=== PATIENT | female | born 1995 | race Caucasian/White ===

== ENCOUNTER → 2023-03-22 | Emergency (ER) | payer OTHER ==
[~2023-03-22] MED LIST: CIPROFLOXACIN 400mg IV 400 MG/200 ML BAG IV ONE; FAMOTIDINE 20 MG/2 ML VIAL IV ONE; NA CHLORIDE 0.9% 1,000 ML ONE; ONDANSETRON 4 MG/2 ML VIAL ONE; POTASSIUM 25 MEQ EFFERV TAB ONE
[2023-03-22 09:26] LABS: Absolute Lymphocytes (CBC) 0.9 K/uL (0.7-4.9); Hematocrit 41.3 % (36.0-45.0); Lymphocytes % 15.2 % (15.3-44.8); MCV 81.6 fL (80-100); MPV 8.7 fL (7.6-11.3); Platelets 191 thou/uL (152-406); RBC Red Blood Cell Count 5.06 M/uL (3.86-4.86)
[2023-03-22 09:28] LABS: Specific Gravity < 1.005 (1.005-1.030)
[2023-03-22 09:35] LABS: Albumin 3.5 g/dL (3.4-5.0); Bilirubin Total 0.5 mg/dL (0.2-1.0); Potassium 3.2 mEq/L (3.5-5.1); Protein, Total 7.3 g/dL (6.4-8.2)
[2023-03-22 09:45] LABS: Specific Gravity < 1.005 (1.005-1.030); Urine Bacteria None Seen /HPF (<20); Urine Bilirubin NEGATIVE (Negative); Urine Blood Negative (Negative); Urine Clarity Clear (Clear); Urine Color Colorless (Yellow); Urine Crystals Unidentified Few /HPF (None Seen); Urine Glucose NEGATIVE (Negative); Urine Protein NEGATIVE (Negative); Urine RBC <5 /HPF (None Seen); Urine Urobilinogen Normal (Normal); Urine pH 5.5 (5.0-7.0)
--- NOTE | 2023-03-22 10:47 | ER ---
Nurse's Notes [facility] Name: Fiordaliza Regalado Age: 27 yrs Sex: Female : 1995 Arrival Date: 03/22/2023 Time: 08:53 Bed 4 Private MD: Diagnosis: Diarrhea, unspecified;Nausea with vomiting, unspecified;Hypokalemia;Fever, unspecified Presentation: 03/22 09:09 Chief complaint: Patient states: she has been having abdominal pain, fever, vomiting ap3 and diarrhea with meals since Friday03/18/2023. patient currently rates her pain as a 2/10 on the pain scale. Coronavirus screen: At this time, the client does not indicate any symptoms associated with coronavirus-19. Ebola Screen: No symptoms or risks identified at this time. Initial Sepsis Screen: Does the patient meet any 2 criteria? HR > 90 bpm. Does the patient have a suspected source of infection? Yes: Acute abdominal pain. Risk Assessment: Do you want to hurt yourself or someone else? Patient reports no desire to harm self or others. Onset of symptoms was March 18, 2023. 09:09 Method Of Arrival: Ambulatory ap3 09:09 Acuity: BERNA 3 ap3 Triage Assessment: 09:11 General: Appears in no apparent distress. Behavior is calm, cooperative, appropriate ap3 for age. Pain: Complains of pain in abdomen. Neuro: Level of Consciousness is awake, alert, obeys commands, Oriented to person, place, time, situation, Appropriate for age. Cardiovascular: Patient's skin is warm and dry. Respiratory: Airway is patent Respiratory effort is even, unlabored, Respiratory pattern is regular, symmetrical. GI: Reports diarrhea, nausea, vomiting. 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 - Social history:: Smoking status: Patient denies any tobacco usage or history of. Screenin:12 [facility] ED Fall Risk Assessment (Adult) History of falling in the last 3 months, ap3 including since admission No falls in past 3 months (0 pts). Abuse screen: Denies threats or abuse. Nutritional screening: No deficits noted. Tuberculosis screening: No symptoms or risk factors identified. Assessment: 09:30 General: Appears in no apparent distress. Behavior is calm, cooperative. Pain: Pain hb currently is 2 out of 10 on a pain scale. Neuro: Level of Consciousness is awake, alert, obeys commands, Oriented to person, place, time, situation. Cardiovascular: Patient's skin is warm and dry. Respiratory: Respiratory effort is even, unlabored, Respiratory pattern is regular, symmetrical. GI: Reports lower abdominal pain, upper abdominal pain, diarrhea, nausea, vomiting. : No signs and/or symptoms were reported regarding the genitourinary system. EENT: No signs and/or symptoms were reported regarding the EENT system. Derm: Skin is pink, warm \T\ dry. Musculoskeletal: No signs and/or symptoms reported regarding the musculoskeletal system. 10:30 Reassessment: Patient appears in no apparent distress at this time. Patient and/or jl7 family updated on plan of care and expected duration. Pain level reassessed. Patient is alert, oriented x 3, equal unlabored respirations, skin warm/dry/pink. Patient states feeling better. Patient states symptoms have improved. 11:04 Reassessment: Pt will be discharged once medications are done infusing. jl7 12:24 Reassessment: Patient appears in no apparent distress at this time. Patient and/or hb family updated on plan of care and expected duration. Pain level reassessed. Patient is alert, oriented x 3, equal unlabored respirations, skin warm/dry/pink. Vital Signs: 09:09 BP 125 / 87; Pulse 123; Resp 17; Temp 98.8; Pulse Ox 98% ; Weight 58.06 kg; Height 5 ap3 ft. 6 in. ; Pain 2/10; 09:30 BP 112 / 79; Pulse 92; Resp 15; Pulse Ox 99% on R/A; hb 12:00 BP 126 / 76; Pulse 86; Resp 15; Pulse Ox 99% on R/A; hb 09:09 Body Mass Index 20.66 (58.06 kg, 167.64 cm) ap3 09:09 Pain Scale: Adult ap3 ED Course: 08:57 Patient arrived in ED. ts1 08:58 Lele Arriaga MD is Attending Physician. evonne 09:10 Triage completed. ap3 09:12 Arm band placed on right wrist. ap3 09:12 Patient has correct armband on for positive identification. Bed in low position. Call ap3 light in reach. Adult w/ patient. Pulse ox on. NIBP on. 09:12 CBC with Diff Sent. ap3 09:12 CMP Sent. ap3 09:12 Lipase Sent. ap3 09:16 Inserted saline lock: 22 gauge in left antecubital area, using aseptic technique. Blood ds4 collected. 09:30 Provided Education on: tests, result times. hb 09:30 No provider procedures requiring assistance completed. hb 10:45 Silvana Garay MD is Referral Physician. evonne 11:03 Robin Emerson RN is Primary Nurse. jl7 12:25 IV discontinued, intact, bleeding controlled, No redness/swelling at site. hb Administered Medications: 09:29 Drug: NS 0.9% IV 1000 ml IV at 1 bolus Per protocol; 1000 mL bolus Route: IV; Rate: 1 ap3 bolus; Site: left antecubital; 10:36 Follow up: Response: No adverse reaction; IV Status: Completed infusion; IV Intake: hb 1000ml 09:29 Drug: Famotidine IVP 20 mg IVP once; dilute with 10 mL 0.9% NaCl; give over 2 minutes ap3 Route: IVP; Site: left antecubital; 10:36 Follow up: Response: No adverse reaction hb 09:29 Drug: Ondansetron IVP 4 mg IVP once; over 2 minutes Route: IVP; Site: left antecubital; ap3 10:36 Follow up: Response: No adverse reaction hb 11:04 Drug: NS 0.9% IV 1000 ml IV at 1 bolus Per protocol; 1000 mL bolus Route: IV; Rate: 1 jl7 bolus; Site: left antecubital; 11:04 Drug: Ciprofloxacin IVPB 400 mg 200 ml IVPB once over 60 mins Volume: 200 ml; Route: jl7 IVPB; Infused Over: 60 mins; Site: left antecubital; 11:04 Drug: Potassium PO Effervescent Tablet 50 mEq PO once; dissolve in 4 ounces of water or jl7 juice Route: PO; Medication: 09:30 VIS not applicable for this client. hb Intake: 10:36 IV: 1000ml; Total: 1000ml. hb Outcome: 10:46 Discharge ordered by . evonne 12:25 Discharged to home ambulatory, with family, hb 12:25 Condition: stable 12:25 Discharge instructions given to patient, Instructed on discharge instructions, follow up and referral plans. medication usage, Demonstrated understanding of instructions, follow-up care, medications, Prescriptions given X 3, 12:32 Patient left the ED. hb Signatures: Lele Arriaga MD MD cha Swanson, Donovan ds4 Rosalind Hfuf RN RN Robin Emerson RN RN jl7 Francie Ross RN RN ap3 Jaz Ferraro, PAS PAS ts1
--- NOTE | 2023-03-22 10:47 | EDPHYS ---
Physician Documentation [facility] Name: Fiordaliza Regalado Age: 27 yrs Sex: Female : 1995 Arrival Date: 03/22/2023 Time: 08:53 Bed 4 Private MD: ED Physician Lele Arriaga HPI: 03/22 10:40 This 27 yrs old Female presents to ER via Ambulatory with complaints of evonne Abdominal Pain, Fever, Nausea/Vomiting/Diarrhea. 10:40 The patient reports fever, not measured (subjective). Onset: The symptoms/episode evonne began/occurred 3 day(s) ago. Modifying factors: there are no obvious modifying factors. Associated signs and symptoms: Pertinent positives: diarrhea. Severity of symptoms: At their worst the symptoms were mild moderate in the emergency department the symptoms have improved mildly. The patient has not experienced similar symptoms in the past. 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 - Social history:: Smoking status: Patient denies any tobacco usage or history of. ROS: 10:41 Constitutional: Negative for fever, chills, and weight loss, Eyes: Negative for injury, evonne pain, redness, and discharge, ENT: Negative for injury, pain, and discharge, Neck: Negative for injury, pain, and swelling, Cardiovascular: Negative for chest pain, palpitations, and edema, Respiratory: Negative for shortness of breath, cough, wheezing, and pleuritic chest pain, Back: Negative for injury and pain, : Negative for injury, bleeding, discharge, and swelling, MS/Extremity: Negative for injury and deformity, Skin: Negative for injury, rash, and discoloration, Neuro: Negative for headache, weakness, numbness, tingling, and seizure, Psych: Negative for depression, anxiety, suicide ideation, homicidal ideation, and hallucinations, Allergy/Immunology: Negative for hives, rash, and allergies, Endocrine: Negative for neck swelling, polydipsia, polyuria, polyphagia, and marked weight changes, Hematologic/Lymphatic: Negative for swollen nodes, abnormal bleeding, and unusual bruising, 10:41 Abdomen/GI: Positive for abdominal pain, nausea and vomiting, diarrhea, Exam: 10:41 Constitutional: This is a well developed, well nourished patient who is awake, alert, evonne and in no acute distress. Head/Face: Normocephalic, atraumatic. Eyes: Pupils equal round and reactive to light, extra-ocular motions intact. Lids and lashes normal. Conjunctiva and sclera are non-icteric and not injected. Cornea within normal limits. Periorbital areas with no swelling, redness, or edema. ENT: Nares patent. No nasal discharge, no septal abnormalities noted. Tympanic membranes are normal and external auditory canals are clear. Oropharynx with no redness, swelling, or masses, exudates, or evidence of obstruction, uvula midline. Mucous membranes moist. Neck: Trachea midline, no thyromegaly or masses palpated, and no cervical lymphadenopathy. Supple, full range of motion without nuchal rigidity, or vertebral point tenderness. No Meningismus. Chest/axilla: Normal chest wall appearance and motion. Nontender with no deformity. No lesions are appreciated. Cardiovascular: Regular rate and rhythm with a normal S1 and S2. No gallops, murmurs, or rubs. Normal PMI, no JVD. No pulse deficits. Respiratory: Lungs have equal breath sounds bilaterally, clear to auscultation and percussion. No rales, rhonchi or wheezes noted. No increased work of breathing, no retractions or nasal flaring. Abdomen/GI: Soft, non-tender, with normal bowel sounds. No distension or tympany. No guarding or rebound. No evidence of tenderness throughout. Back: No spinal tenderness. No costovertebral tenderness. Full range of motion. Skin: Warm, dry with normal turgor. Normal color with no rashes, no lesions, and no evidence of cellulitis. MS/ Extremity: Pulses equal, no cyanosis. Neurovascular intact. Full, normal range of motion. Neuro: Awake and alert, GCS 15, oriented to person, place, time, and situation. Cranial nerves II-XII grossly intact. Motor strength 5/5 in all extremities. Sensory grossly intact. Cerebellar exam normal. Normal gait. Psych: Awake, alert, with orientation to person, place and time. Behavior, mood, and affect are within normal limits. Vital Signs: 09:09 BP 125 / 87; Pulse 123; Resp 17; Temp 98.8; Pulse Ox 98% ; Weight 58.06 kg; Height 5 ap3 ft. 6 in. ; Pain 2/10; 09:30 BP 112 / 79; Pulse 92; Resp 15; Pulse Ox 99% on R/A; hb 12:00 BP 126 / 76; Pulse 86; Resp 15; Pulse Ox 99% on R/A; hb 09:09 Body Mass Index 20.66 (58.06 kg, 167.64 cm) ap3 09:09 Pain Scale: Adult ap3 MDM: 09:00 Patient medically screened. [facility] 10:43 Differential diagnosis: viral Infection, bacterial infection, gastroenteritis, bowel evonne obstruction. Data reviewed: vital signs, nurses notes, lab test result(s). Consideration of Admission/Observation Escalation of care including admission/observation considered. I considered the following discharge prescriptions or medication management in the emergency department Medications were administered in the Emergency Department. See MAR. Independent interpretation of the following test(s) in the Emergency Department. Test considered but Not performed: CT: no ct abd/pelvic. Care significantly affected by the following chronic conditions: none. Counseling: I had a detailed discussion with the patient and/or guardian regarding the historical points, exam findings, and any diagnostic results supporting the discharge/admit diagnosis, lab results, the need for outpatient follow up, for definitive care, a family practitioner. 03/22 09:00 Order name: CBC with Diff; Complete Time: 10:23 [facility] 03/22 09:00 Order name: CMP; Complete Time: 10: [facility] 03/22 09:00 Order name: Lipase; Complete Time: 10: [facility] 03/22 09:00 Order name: Test, Urine; Complete Time: 10:23 [facility] 03/22 09:00 Order name: Urinalysis w/ reflexes; Complete Time: 10:23 [facility] 03/22 10:39 Order name: Stool Culture [facility] 03/22 10:39 Order name: Fecal Leukocyte Stain [facility] 03/22 09:00 Order name: IV Saline Lock; Complete Time: 09:12 [facility] 03/22 09:00 Order name: Labs collected and sent; Complete Time: 09:16 [facility] 03/22 10:39 Order name: PO challenge; Complete Time: 11:04 [facility] Administered Medications: 09:29 Drug: NS 0.9% IV 1000 ml IV at 1 bolus Per protocol; 1000 mL bolus Route: IV; Rate: 1 ap3 bolus; Site: left antecubital; 10:36 Follow up: Response: No adverse reaction; IV Status: Completed infusion; IV Intake: hb 1000ml 09:29 Drug: Famotidine IVP 20 mg IVP once; dilute with 10 mL 0.9% NaCl; give over 2 minutes ap3 Route: IVP; Site: left antecubital; 10:36 Follow up: Response: No adverse reaction hb 09:29 Drug: Ondansetron IVP 4 mg IVP once; over 2 minutes Route: IVP; Site: left antecubital; ap3 10:36 Follow up: Response: No adverse reaction hb 11:04 Drug: NS 0.9% IV 1000 ml IV at 1 bolus Per protocol; 1000 mL bolus Route: IV; Rate: 1 jl7 bolus; Site: left antecubital; 11:04 Drug: Ciprofloxacin IVPB 400 mg 200 ml IVPB once over 60 mins Volume: 200 ml; Route: jl7 IVPB; Infused Over: 60 mins; Site: left antecubital; 11:04 Drug: Potassium PO Effervescent Tablet 50 mEq PO once; dissolve in 4 ounces of water or jl7 juice Route: PO; Disposition Summary: 03/22/23 10:46 Discharge Ordered Notes: Location: Home evonne Problem: new evonne Symptoms: have improved evonne Condition: Stable evonne Diagnosis - Diarrhea, unspecified evonne - Nausea with vomiting, unspecified evonne - Hypokalemia evonne - Fever, unspecified evonne Followup: evonne - With: Private Physician - When: 2 - 3 days - Reason: Recheck today's complaints, Continuance of care, Re-evaluation by your physician Followup: evonne - With: Silvana Garay MD - When: 2 - 3 days - Reason: Recheck today's complaints, Re-evaluation by your physician Discharge Instructions: - Discharge Summary Sheet evonne - Food Choices to Help Relieve Diarrhea, Adult evonne - Diarrhea, Adult evonne - Potassium Content of Foods evonne - Fever, Adult evonne - Nausea and Vomiting, Adult evonne - Hypokalemia evonne Forms: - Medication Reconciliation Form [facility] - Thank You Letter evonne - Antibiotic Education evonne - Prescription Opioid Use evonne - Patient Portal Instructions [facility] - Leadership Thank You Letter [facility] Prescriptions: - ondansetron 4 mg Oral Tablet,disintegrating - take 1 tablet ORAL route every 6 hours as needed for nausea and vomiting; 24 evonne tablet; Refills: 0, Product Selection Permitted - Cipro 250 mg Oral tablet - take 1 tablet ORAL route every 12 hours; 10 tablet; Refills: 0, Product evonne Selection Permitted - dicyclomine 10 mg/5 mL Oral solution - take 7.5 milliliter ORAL route 4 times per day; 160 milliliter; Refills: 0, evonne Product Selection Permitted Signatures: Dispatcher [employer] Lele Quintero MD MD cha Leal, Jahala RN RN jl7 Francie Ross RN RN ap3 Rosalind Huff RN
[2023-03-22 12:53] VITALS: TEMP 98.8
[2023-03-22 13:00] VITALS: BP 126/76; O2SAT 99
== END ==
LOC: ER 08:53
DX: E87.6 Hypokalemia (principal); R19.7 Diarrhea, unspecified; R50.9 Fever, unspecified
CPT/HCPCS: 96361; 85025; 81001; 36415; 81025; 83690; 80053; 96375; 96374; 99284; J2405; J0744; J7030 ×2

== ENCOUNTER → 2023-06-24 | Emergency (ER) | payer OTHER ==
[~2023-06-24] MED LIST changes: -CIPROFLOXACIN 400mg IV 400 MG/200 ML BAG IV ONE; -FAMOTIDINE 20 MG/2 ML VIAL IV ONE; +IBUPROFEN 200 MG TAB PO ONE; +METOPROLOL TARTRATE 5 MG/5 ML INJ IV ONE; +NA CHLORIDE 0.9% 2,000 ML ONE; -ONDANSETRON 4 MG/2 ML VIAL ONE; -POTASSIUM 25 MEQ EFFERV TAB ONE; +PROPRANOLOL HCL 40 MG TAB ONE
--- OUTSIDE RECORDS SUMMARY | 2023-06-24 14:31 | XMS REPORT | Continuity of Care Document ---
Author Name Unknown Address [address] [facility] [address] [place] [address] [facility] Address [address] [facility] [address] [place] [address] Care Team Providers Care Piano Refinisher Name Role Phone Heide Carrillo Attending Clinician Unavailable Heide Carrillo Admitting Clinician Unavailable Payers Payer Name Policy Type Policy Number Effective Date Expirati on Date Source Allergies, Adverse Reactions, Alerts Allergy Name Allergy Type Status Severity Reaction(s) Onset Date Inactive Date Treating Clinician Comments Source No Known Allergie s DA Active U 08-16 00:00: 00 [facility] No Known Allergie s DA Active U 08-16 00:00: 00 [facility] Procedures Procedure Date / Time Performed Performing Clinicia n Source [id number] 2020-08-17 00:00:00 [facility] [id number] 2020-08-17 00:00:00 [facility] [id number] 2020-08-17 00:00:00 [facility] [id number] 2020-08-17 00:00:00 [facility] [id number] 2020-08-17 00:00:00 [facility] [id number] 2020-08-17 00:00:00 [facility] [id number] 2020-08-16 [facility] Encounters Start Date/Time End Date/Time Encounter Type Admission Type Attending [facility] Care Facility Care Department Encounter ID Source 2020-08-16 15:22:00 2020-08-19 14:26:00 Inpatient Heide Srinivasan [facility] [id number] [facility] Results Test Description Test Time Test Comments Results Result Co mments Source HGB [id number] 12:10:00* Test Item Value Reference Range Interpretation Comme nts HEMOGLOBIN (test code = HGB) 9.8 g/dL 10.1-13.8 L HEMATOCRIT (test code = HCT) 31.6 % 32.5-41.8 L HGB [id number] 08:37:00* Test Item Value Reference Range Interpretation Comme nts HEMOGLOBIN (test code = HGB) 9.9 g/dL 10.1-13.8 L HEMATOCRIT (test code = HCT) 31.5 % 32.5-41.8 L AG HEPATITIS B [id number] 17:36:00* Test Item Value Reference Range Interpretation Comme nts AG HEPATITIS B SURFACE (test code = HBSAG) NONREACTIVE NONREACTIVE IS CONSENT FORM SIGNED FOR HIV TESTING? NAB HEPATITIS C [id number] 17:36:00* Test Item Value Reference Range Interpretation Comme nts AB HEPATITIS C (test code = HCVAB) NONREACTIVE NONREACTIVE SIGNAL TO CUTOFF (test code = CUTOFF) 0.09 <0.80 N IS CONSENT FORM SIGNED FOR HIV TESTING? NAB [id number] 17:36:00* Test Item Value Reference Range Interpretation Comme nts AB TREPONEMA (test code = TREPAB) NONREACTIVE NONREACTIVE IS CONSENT FORM SIGNED FOR HIV TESTING? NAB HIV 1 17:36:00* Test Item Value Reference Range Interpretation Comme nts AB HIV 1 2 (test code = AUU59BW) NONREACTIVE NONREACTIVE Done by [employer]aur 4th Gen HIV Ag/Ab Combo Screen IS CONSENT FORM SIGNED FOR HIV TESTING? NCBC W/AUTO [id number] 16:37:00* Test Item Value Reference Range Interpretation Comme nts WHITE BLOOD CELL (test code = WBC) 11.5 K/mm3 6.5-12.3 N RED BLOOD CELL (test code = RBC) 4.77 M/mm3 3.51-4.69 H HEMOGLOBIN (test code = HGB) 12.1 g/dL 10.1-13.8 N HEMATOCRIT (test code = HCT) 37.6 % 32.5-41.8 N MEAN CELL VOLUME (test code = MCV) 78.8 fL 84.6-96.6 L MEAN CELL HGB (test code = MCH) 25.4 pg 27.3-33.9 L MEAN CELL HGB CONCETRATION ( test code = MCHC) 32.2 gm/dL 32.0-34.2 N RED CELL DISTRIBUTION WIDTH (test code = RDW) 13.8 % 12.2-16.3 N PLATELET COUNT (test code = PLT) 213 K/mm3 134-363 N MEAN PLATELET VOLUME (test c ode = MPV) 12.6 fL 9.2-12.7 N NEUTROPHIL % (test code = NT%) 72.9 % 57.9-77.3 N LYMPHOCYTE % (test code = LY%) 17.9 % 14.5-29.7 N MONOCYTE % (test code = MO%) 7.4 % 3.6-10.2 N EOSINOPHIL % (test code = EO%) 1.0 % 0.0-3.0 N BASOPHIL % (test code = BA%) 0.3 % 0.1-0.9 N NEUTROPHIL # (test code = NT#) 8.4 K/mm3 LYMPHOCYTE # (test code = LY#) 2.1 K/mm3 MONOCYTE # (test code = MO#) 0.9 K/mm3 EOSINOPHIL # (test code = EO#) 0.11 K/mm3 BASOPHIL # (test code = BA#) 0.0 K/mm3 RBC MORPHOLOGY REQUIRED (ezekiel t code = RBCM) NORMAL NORMAL PLATELET MORPHOLOGY REQUIRED (test code = PLTMR) NORMAL NORMAL COVID 19 Asymptomatic IH [id number] 20:05:00* Test Item Value Reference Range Interpretation Comme nts COVID 19 Asymptomatic IH AG (test code = COVNONPUIAG) NEGATIVE NEGATIVE This test has be en authorized only for the detection ofproteins from SARS-CoV-2, not for any other viruses orpathogens. Negative results should be treated as presumptive andconfirmed with a molecular assay, if necessary for patientmanagement. Negative results do not rule out COVID-19 andshould not be used as the sole basis for treatment orpatient management decisions, including infection controldecisions. Negative results should be considered in thecontext of a patient's recent exposures, history and thepresence of clinical signs and symptoms consistent withCOVID-19. This test has not been FDA cleared or approved; the test hasbeen authorized by FDA under an Emergency Use Authorization(EUA) for use by laboratories certified under the CLIA thatmeet the requirements to perform moderate, high or waivedcomplexity tests. This test is authorized for use at thePoint of Care (POC), i.e., in patient care settingsoperating under a CLIA Certificate of Waiver, Certificate ofCompliance, or Certificate of Accreditation. This test is only authorized for the duration of thedeclaration that circumstances exist justifying theauthorization of emergency use of in vitro diagnostic testsfor detection and/or diagnosis of COVID-19 under Jmfxjtc450(b)(1) of the Act, 21 U.S.C. 360bbb-3(b)(1), unless theauthorization is terminated or revoked sooner. Notes Date/Time Note Provider Source 2020-08-19 10:01:00 [id number] s5nQ7ZNXye4HwWygUmUZCdyM20aIn qHzASSpTLr/RJ8zaKru9tl2BNJIFoDNBeL1898-71-01G36:0 1:00 [facility])OB Postpart Progr NoteREPORT#:[id number] REPORT STATUS: SignedDATE:08/19/20 TIME: 100 PATIENT: SUKUMAR VOGT UNIT #: [id number]#: [id number] ROOM/BED: [facility]-ADOB: [birth year] AGE: 24 SEX: F ATTEND: Heide Carrillo [facility] AUTHOR: Vince Castillo MD * ALL edits or amendments must be made on the electronic/computer document * Subjective SubjectiveAdmission EGA: Weeks: 41 Days: 0EGA at delivery (wks/days): 41 1/7 weeksStatus/Day: post (day 2)Comments:doing well, feeling much better. pain well controlled. tolerating po. ambulating voiding. Objective Nursing Documentation ReviewNursing Data:The data set between the solid lines has been imported from nursing documentation. Any exceptions have been noted below under Provider comments. Feeding preference: Post hemorrhage risk score: Low Risk for Hemorrhage. Provider comments on imported nursing data: [] GeneralVS:Vital Signs: Date Time Temp Pulse Resp B/P B/P Pulse O2 O2 Flow FiO2 Mean Ox Delivery Rate 08/18 2320 97.8 85 18 100/64 08/18 2009 98.0 84 20 111/73 96 08/18 1645 97.8 72 18 120/69 98 08/18 1330 98.0 65 18 107/65 97 08/18 1025 98.2 82 18 125/81 PATIENT WEIGHT: Weight (lb): 165Weight (oz): Weight (kg): 74.843 Physical ExamNeuro: Exam: alert, oriented x3, normal speechAbdomen: soft, no abnormal tenderness, no guarding, no rebound tendernessFundus: firm, below the umbilicus, non-tenderLochia: normalLacerations: Perineal laceration(s): 1st Degree w/vagina, 2nd Degree, 2nd Degree w/vag musclesLower extremities: Edema: none Diagnosis, Assessment Plan Diagnosis, Assessment PlanProblem List/A P: 1. (spontaneous vaginal delivery) Assessment: nml progressPlan: routine care, discharge today, discharge after H/H at [address] [place] [address] #:[id number] OF REPORT PRProgress Fjzi1909-45-64K47:01:00F.QRUQ43785230-0722JINhxaa able for patient jlykVFJHHWGHVHCBPL7810-66-92C65:03:18 [facility] 2020-08-18 07:01:00 PMlhiqukiyj44652691t [facility]/LrrgS7C2GC63l/Dc1OzVEvFN t+79fmYMLd0n5TaP28CijoBzBpJ2HSA3PQ7569-67-84P63:0 1:00 [facility] ([facility])OB Postpart Progr NoteREPORT#:[id number] REPORT STATUS: SignedDATE:08/18/20 TIME: 700 PATIENT: SUKUMAR VOGT UNIT #: [id number]#: [id number] [address] AGE: 24 SEX: F ATTEND: Heide Carrillo MDADM AUTHOR: Heide Carrillo MD * ALL edits or amendments must be made on the electronic/computer document * Subjective SubjectiveComments:No complaints except pressure/soreness at bottom. Good pain control with motrin and tylenol. Receiving support. ?s answered about nipples/ugalde Objective Nursing Documentation ReviewNursing data:The data set between the solid lines has been imported from nursing documentation. Any exceptions have been noted below under Provider comments. Feeding preference: Post hemorrhage risk score: Low Risk for Hemorrhage. Provider comments on imported nursing data: [] GeneralVS:Vital SignsDate Temp Pulse Resp B/P B/P Mean Pulse Ox FbH081/-08/18 97.7-100.3 65-122 16-20 101-144/59-9 75.0-109.0 81-100 2 Last Documented: Result Date Time B/P 121/81 08/18 0000 Temp 97.7 08/18 0000 Pulse 65 08/18 0000 Resp 18 08/18 0000 B/P Mean 92.0 08/17 1925 Pulse Ox 94 08/17 1625 PATIENT WEIGHT: Weight (lb): 165Weight (oz): Weight (kg): 74.843 Physical ExamFundus: firm, below the umbilicus, non-tenderLower extremities: Edema: trace ResultFindings/data:Laboratory Tests 08/16 1600 Hematology WBC (6.5 - 12.3 K/mm3) 11.5 RBC (3.51 - 4.69 M/mm3) 4.77 H Hgb (10.1 - 13.8 g/dL) 12.1 Hct (32.5 - 41.8 %) 37.6 MCV (84.6 - 96.6 fL) 78.8 L MCH (27.3 - 33.9 pg) 25.4 L MCHC (32.0 - 34.2 gm/dL) 32.2 RDW (12.2 - 16.3 %) 13.8 Plt Count (134 - 363 K/mm3) 213 MPV (9.2 - 12.7 fL) 12.6 Neut % (Auto) (57.9 - 77.3 %) 72.9 Lymph % (Auto) (14.5 - 29.7 %) 17.9 [place] % (Auto) (3.6 - 10.2 %) 7.4 Eos % (Auto) (0.0 - 3.0 %) 1.0 Baso % (Auto) (0.1 - 0.9 %) 0.3 Neut # (Auto) (K/mm3) 8.4 Lymph # (Auto) (K/mm3) 2.1 [place] # (Auto) (K/mm3) 0.9 Eos # (Auto) (K/mm3) 0.11 Baso # (Auto) (K/mm3) 0.0 Laboratory Tests 08/16 1600 Serology Treponema pallidum Ab (NONREACTIVE) NONREACTIVE Hep Bs Antigen (NONREACTIVE) NONREACTIVE Hepatitis C Antibody (NONREACTIVE) NONREACTIVE Hep C Ab Signal/Cutoff (<0.80) 0.09 HIV 1 2 Antibody (NONREACTIVE) NONREACTIVE Diagnosis, Assessment Plan Diagnosis, Assessment PlanFree text A P:PPD 1 /Mild Uterine Atony with EBL 700FU AM H/HDonut pillowLactation supportLikely home FridayRx motrin sentPelvic restFU 6 weeks at 0703 RPT #:[id number] OF REPORT PRProgress Znzq8773-30-93R14:01:00F.JRJW95219976-9517KJPsybo able for patient opvnSPSIBFWSBGBDWB7551-45-95R47:03:46 [facility] 2020-08-17 16:26:00 GIuphpudkti29989202s CpzQvpnJSlOuq5kpc3jj18ILS4ViS wXU3m7pIlrREaStLts81TqhHVDIlpg4Hvz0644-01-45D09:2 6:00 [facility] ([facility])OB Delivery NoteREPORT#:[id number] REPORT STATUS: SignedDATE:08/17/20 TIME: 1625 PATIENT: SUKUMAR VOGT UNIT #: [id number]#: [id number] [facility] A[facility]: 24 SEX: F ATTEND: Heide Carrillo [facility] AUTHOR: Heide Carrillo MD * ALL edits or amendments must be made on the electronic/computer document * OB Delivery Pre-deliveryGBS status: GBS status: negativeNewborn evaluation at delivery: NRP certified personnelAdmission EGA: Weeks: 41 Days: 0EGA at delivery (wks/days): 41 1/7 weeks Baby A InformationBaby A information Delivery date: 08/17/20 Delivery time: 1553 status: live born Wt of baby: not yet available Gender: female (Jayda) 1 minute: 8 5 minutes: 9 Presentation: vertexABG details Baby A Cord blood gases: not collectedNuchal cord Baby A Nuchal cord: yes (tight,deliv.through)Additional comments:60 seconds of delayed cord clamping. Aldo DE LA CRUZ, cut the cord.Baby vigorous and placed on maternal chestMDACC cord blood collection performed.Repair performed while waiting on nootrgbe4gg degree right inner vaginal at hymen, oozing, repaired with 2-0 mchimb9tj degree 1.5 cm at perineal body resxgnvr0yh degree left inner labia majora repaired with 2-0 vicrylPlacenta delivered spontaneously and patient felt hot. RN reports Temp 100.4 1 hour before delivery but normal pulse.Uterine atony after delivery of placentaUterine massage and I/O cath of 500 mL clear cnacb733 mcg rectal cytotec placed and 1 dose of IM methergine 0.2 mg llorv6tp round of uterine massage removed a thin strip, 3 cm long of placental membrane fragments. Uterus feels clearBleeding slowed Vaginal DeliveryVaginal delivery: Labor: induced Medications/Devices used: oxytocin, cytotec Vaginal delivery: spontaneous Amniotic fluid: clear Anesthesia type: epidural anesthesia Episiotomy: none Episiotomy repair: no Laceration repair: yes, 2-0 suture Placenta: spontaneous, intact, sent to pathology Post delivery meds used: oxytocin, methergine, cytotec Count: correct Vaginal packing: No Mother's condition: mother stable 's condition: stable in roomLacerations: Perineal laceration(s): 1st Degree w/vagina, 2nd Degree, 2nd Degree w/vag muscles Blood Loss/DetailsBlood loss at delivery: <1000 mlEBL at delivery (ml's): 700 at 1634 RUST #:[id number] OF REPORT OBObstetric oeso7386-80-62B47:26:00F.NFUN37270794-4360FHRegpm able for patient bddbHWQMLSXZNVCOIS9411-36-20D74:35:02 [facility] 2020-08-17 09:52:00 RObvtkcrvlf35089347a KhGP2WZ/xHIKc/3bByYHeka8L335K RX4Kw4Z2QQ+sraQB/gvO16QCkcF9gvfgg21934-69-22U50:5 2:00 [facility] ([facility])OB Intrapart Prog NoteREPORT#:[id number] REPORT STATUS: SignedDATE:08/17/20 TIME: 951 PATIENT: SUKUMAR VOGT UNIT #: [id number]#: [id number] [facility] [birth year] AGE: 24 SEX: F ATTEND: Heide Carrillo [facility] AUTHOR: Heide Carrillo MD * ALL edits or amendments must be made on the electronic/computer document * Subjective SubjectiveComments:Patient seen at 7:30 AM. No complaints. s/p cytotec at 5pm and again at midnight. Had ctxs and received epidural overnight.When pitocin started at 1, prolonged decel for 9 minutes. Pitocin stopped and patient continued to contract.Comfortable with epidural Objective GeneralVS:Last Documented: Result Date Time Pulse Ox 96 08/17 0855 Pulse 89 08/17 0855 B/P Mean 95.0 08/17 0845 B/P 121/78 08/17 0845 Resp 20 08/17 0831 Temp 98.3 08/17 0500 Vital SignsDate Temp Pulse Resp B/P B/P Mean Pulse Ox FvF766/19-08/17 98.0-98.3 68-126 16-20 95-149/57-96 69.0-110.0 94-100 PATIENT WEIGHT: Weight (lb): 165Weight (oz): Weight (kg): 74.843 ObjectiveCervical/ exam: Dilatation (cm): 5/90/-2/AROM copious clear liquid at 7:30 AM by Carrillo/vtx confirmedPelvis exam: Clinically adequate for this fetus: yesUterine activity: Monitor: toco Frequency (description): regular FHR EvaluationBaby A: Baby A baseline: 140 bpm Baby A variability: moderate 6-25 bpm Baby A accelerations: 10 X 10 Baby A decelerations: none Baby A FHR category: category 1 ResultFindings/Data:Laboratory Tests: 08/16 1600 Hematology WBC (6.5 - 12.3 K/mm3) 11.5 RBC (3.51 - 4.69 M/mm3) 4.77 H Hgb (10.1 - 13.8 g/dL) 12.1 Hct (32.5 - 41.8 %) 37.6 MCV (84.6 - 96.6 fL) 78.8 L MCH (27.3 - 33.9 pg) 25.4 L MCHC (32.0 - 34.2 gm/dL) 32.2 RDW (12.2 - 16.3 %) 13.8 Plt Count (134 - 363 K/mm3) 213 MPV (9.2 - 12.7 fL) 12.6 Neut % (Auto) (57.9 - 77.3 %) 72.9 Lymph % (Auto) (14.5 - 29.7 %) 17.9 [place] % (Auto) (3.6 - 10.2 %) 7.4 Eos % (Auto) (0.0 - 3.0 %) 1.0 Baso % (Auto) (0.1 - 0.9 %) 0.3 Neut # (Auto) (K/mm3) 8.4 Lymph # (Auto) (K/mm3) 2.1 [place] # (Auto) (K/mm3) 0.9 Eos # (Auto) (K/mm3) 0.11 Baso # (Auto) (K/mm3) 0.0 Serology Treponema pallidum Ab (NONREACTIVE) NONREACTIVE Hep Bs Antigen (NONREACTIVE) NONREACTIVE Hepatitis C Antibody (NONREACTIVE) NONREACTIVE Hep C Ab Signal/Cutoff (<0.80) 0.09 HIV 1 2 Antibody (NONREACTIVE) NONREACTIVE Diagnosis, Assessment PlanFree Text A P:24 yo at 41 1/7 weeks undergoing IOLs/p cytotec x 2 and in early labors/p AROM and epiduralCPMFHR cat 1Having a girl at 0955 RPT #:[id number] OF REPORT PRProgress Wlqa2295-50-92S63:52:00F.LQNO57282491-7234WZRvpxz able for patient npaqDJSAZVKSDWYUEJ7552-79-04D77:55:43 [facility] 2020-08-17 07:28:00 EEjdyuoytyv17047903M x5hxBloLeHshRzKl9NhGuy1nfF3gp w2HVJg9FNx9ma+evJvKR3a+pMu2q/+TNH12484-23-24Y43:2 8:00 [facility])Clinical NoteREPORT#:[id number] REPORT STATUS: SignedDATE:08/17/20 TIME: 727 PATIENT: SUKUMAR VOGT UNIT #: [id number]#: [id number] ROOM/BED: [facility]-ADOB: [birth year] AGE: 24 SEX: F ATTEND: Heide Carrillo [facility] AUTHOR: Lisa Castle MD * ALL edits or amendments must be made on the electronic/computer document * Clinical NoteNote:MD at bedside to follow up on pt and tracing. patient without complaints. comfortable. tracing reviewed from 0535 - 0645baseline 150, min to moderate variability, no decels, overall cat 2 tracingtoco contraction every 2-3 minutes on own mechanism a/p postdate IOL. s/p decel with pit augmentation. tracing recovered, beverley on own. cont expectant management at 0736 RPT #:[id number] OF REPORT CLClinical uryf8900-22-92G54:28:00F.SQQL27312336-2666LYZqgrx able for patient jbpkFXPQJFSCARMVNL5312-52-29I80:37:05 [facility] 2020-08-17 05:37:00 HNauoyxvfkx02839156z E3/GbK+2Ph4p6TeD5Pyw4qDV2PTYV xnu/a2eu2zKdyHcvGBhj/4+I+Z+/+VHbQ60771-71-12O27:3 7:00 [facility] ([facility])Clinical NoteREPORT#:[id number] REPORT STATUS: SignedDATE:08/17/20 TIME: 05 PATIENT: SUKUMAR VOGT UNIT #: [id number]#: [id number] [facility] AGE: 24 SEX: F ATTEND: Heide Carrillo [facility] AUTHOR: Mehrdad Riojas, Lisa Barakat MD * ALL edits or amendments must be made on the electronic/computer document * Clinical NoteNote:called to bedside for 9 minute decel with occurred with 5 minute contraction. terb x 1 given and pt on lateral position with O2 mask on. Pitocin discont and EFM recovering to baseline. s/p 2 doses of cytotec overnight, pitocin initiated at 5am, was at 1munits when decel occurred. epidural placed at 2352 Last Documented: Result Date Time B/P Mean 98.0 08/17 0446 B/P 131/78 08/17 0446 Pulse 72 08/17 0446 Temp 98.3 08/17 0300 Resp 16 08/17 0300 Vital Signs Date Temp Pulse Resp B/P B/P Mean Pulse Ox FiO2 08/16-08/17 98.0-98.3 68-102 16 95-149/57-96 69.0-110.0 efm 150s, moderate variability, cat 2 tracingtoco contraction every 2-3 minutessve 3-4/80/-3, vtx, anterior, intact (arom deferred while recovering) a/p postdate IOL, s/p prolonged decel with pitocin. gbs negativepit off, terb x 1 given and maternal resusitation employed, tracing with recoverycont close monitoring for now at 0548 RPT #:[id number] OF REPORT CLClinical hxko5274-14-36Q47:37:00F.DGZB30558710-8582YGBhxcw able for patient lrsqQLTKITXQGQQJXN4553-74-46Z05:48:38 [facility] 2020-08-16 20:02:00 GOcnrzcgitq93719822/ Vj5UE8W0//M/r4nzFLXOvmtEXkZAx 6v6TEYulNw3iQBuudHDvhCXqyjo0deVJpe1879-36-43Q41:0 2:00 [facility])Clinical NoteREPORT#:[id number] REPORT STATUS: SignedDATE:08/16/20 TIME: 2001 PATIENT: SUKUMAR VOGT UNIT #: [id number]#: [id number] ROOM/BED: [facility]-ADOB: [birth year] AGE: 24 SEX: F ATTEND: Heide Carrillo [facility] AUTHOR: Lisa Castle MD * ALL edits or amendments must be made on the electronic/computer document * Clinical NoteNote:Covering for Dr. Carrillo overnight. H P and prenatals (up to 03/27/20) reviewed. Met with pt at bedside with fob and PM nightConnie. No complaints. doing well, toleraing cytotec #1 without issues. Report contraction pain minimal. No headach, or visual changes. sve at 1604 3/60/-1cytotec #1 1709 Last Documented: Result Date Time B/P Mean 101.0 08/16 1544 B/P 127/85 08/16 1544 Temp 98.0 08/16 1544 Pulse 102 08/16 1544 Vital Signs Date Temp Pulse Resp B/P B/P Mean Pulse Ox FiO2 08/16 98.0 102 127/85 101.0 NADefm 140s, moderate variability, pos accels, cat i tracingtoco contraction q 1-2.5minutessve deferredefw 3600gms Laboratory Tests 08/16 1600 Hematology WBC (6.5 - 12.3 K/mm3) 11.5 RBC (3.51 - 4.69 M/mm3) 4.77 H Hgb (10.1 - 13.8 g/dL) 12.1 Hct (32.5 - 41.8 %) 37.6 MCV (84.6 - 96.6 fL) 78.8 L MCH (27.3 - 33.9 pg) 25.4 L MCHC (32.0 - 34.2 gm/dL) 32.2 RDW (12.2 - 16.3 %) 13.8 Plt Count (134 - 363 K/mm3) 213 MPV (9.2 - 12.7 fL) 12.6 Neut % (Auto) (57.9 - 77.3 %) 72.9 Lymph % (Auto) (14.5 - 29.7 %) 17.9 [place] % (Auto) (3.6 - 10.2 %) 7.4 Eos % (Auto) (0.0 - 3.0 %) 1.0 Baso % (Auto) (0.1 - 0.9 %) 0.3 Neut # (Auto) (K/mm3) 8.4 Lymph # (Auto) (K/mm3) 2.1 [place] # (Auto) (K/mm3) 0.9 Eos # (Auto) (K/mm3) 0.11 Baso # (Auto) (K/mm3) 0.0 Laboratory Tests 08/16 08/14 1600 1325 Serology Treponema pallidum Ab (NONREACTIVE) NONREACTIVE Hep Bs Antigen (NONREACTIVE) NONREACTIVE Hepatitis C Antibody (NONREACTIVE) NONREACTIVE Hep C Ab Signal/Cutoff (<0.80) 0.09 HIV 1 2 Antibody (NONREACTIVE) NONREACTIVE SARS-CoV-2 Ag (Rapid) (NEGATIVE) NEGATIVE a/p 24 yo at 41.0wks for IOLgbs negativecont inductionanticipate active laborpain management options discussed, epidural prn. at 2012 RPT #:[id number] OF REPORT CLClinical hxln2519-82-24I64:02:00F.PWVX44356002-5227BRVduzn able for patient sblhULFSMFDKPOSHLW7886-31-46F81:13:11 [facility] 13:42:00 SKegcidbdzg26166750c 2wzXMtxUjWR/RpW9v4GQHGw9zz1RI +pQPPXULVMd/EeP6/WYTm2xZNXKbEqMWKK3683-72-58X14:4 2:00 [facility])OB Admission / H PREPORT#:[id number] REPORT STATUS: SignedDATE:08/16/20 TIME: 1342 PATIENT: SUKUMAR VOGT UNIT #: [id number]#: [id number] ROOM/BED:: 93 AGE: 24 SEX: F ATTEND: Heide Carrillo [facility] AUTHOR: Heide Carrillo MD * ALL edits or amendments must be made on the electronic/computer document * OB HistoryChief complaint: scheduled inductionHPI:24 yo at 41 0/7 weeks scheduled for post dates IOL. PNC: Dr. Heide Carrillo1. Failed one hour-normal 3 hour PNLabs: GBS negative, A positive,IDC negative, Rubella Immune, HCV negative, HIV negative, HB negative, GC/Chl negative, NIPT normal girl, CF/SMA/FX negative. One hour 140. Normal 3 hour POB: NonePregnancy history: : 1 Term: 0Current : Best EDC: 08/09/20 Admission EGA (weeks) 41 Admission EGA (days) 0 EDC based on: LMPLabs: Blood type: See HPI abovePast medical history: h/o Chlamydia, h/o GERD w/ scar formationPast surgical history: tonsils/adenoids, wisdom teeth, Esophageal DilationSocial history: employed, , no alcohol use, no tobacco use, no drug use, Aldo. 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 [employer]Medications:PNV w/ DHATumsAllergiesCoded Allergies:No Known Allergies (08/16/20) Objective GeneralVS:PATIENT WEIGHT: Weight (lb): 165 lbs at last visitWeight (oz): Weight (kg): Notes:This document created prior to patient's visit Physical ExamAbdomen: gravid, soft, no abnormal tendernessCervical/ exam: Dilatation (cm): Last exam Tight /-1/soft/post by Gerardo on 08/08/20Membranes: Membranes: Intact ResultFindings/Data:Laboratory Tests 08/14 1325 Serology SARS-CoV-2 Ag (Rapid) (NEGATIVE) NEGATIVE Diagnosis, Assessment Plan Diagnosis, Assessment PlanFree Text A P:24 yo @ 41 0/7 weeks being admitted for post dates IOL-Plan for cytotect 25 mcg per vagina q 4 hours x 3 doses then pitocin in AM-GBS negative-Having a egus-Lmtk-IlnrPaolo Carrillo-Plans for epidural-Plans to breastfeed-EFW 8#4oz-Adequate pelvis at 1358 RPT #:[id number] OF REPORT HPHistory and physical [id number]:42:00F.[id number] AVAvailable for patient [id number]:39 HCAWH
[2023-06-24 15:14] LABS: Specific Gravity 1.004 (1.005-1.030); Specific Gravity < 1.005 (1.005-1.030); Sqamous Epithelial <5 /HPF (None Seen); Urine Bacteria <20 /HPF (<20); Urine Bilirubin NEGATIVE (Negative); Urine Blood Negative (Negative); Urine Clarity Turbid (Clear); Urine Color Colorless (Yellow); Urine Crystals Unidentified Few /HPF (None Seen); Urine Culture Reflex Order NOT NEEDED; Urine Glucose NEGATIVE (Negative); Urine Ketones NEGATIVE (Negative); Urine Microscopic Reflex YN ORDER UMIC; Urine Nitrite NEGATIVE (Negative); Urine Protein NEGATIVE (Negative); Urine RBC <5 /HPF (None Seen); Urine Urobilinogen Normal (Normal); Urine WBC <5 /HPF (<5); Urine Yeast (Budding) Trace /HPF (None Seen); Urine pH 6.5 (5.0-7.0)
[2023-06-24 15:24] LABS: Absolute Eosinophils 0.1 K/uL (0-0.5); Absolute Lymphocytes (CBC) 1.6 K/uL (0.7-4.9); Absolute Monocytes 0.7 K/uL (0.1-1.3); Absolute Neutrophil 2.7 K/uL (1.8-8.0); Basophils % 0.5 % (0-1.3); Eosinophils % 1.3 % (0-4.4); Hematocrit 38.6 % (36.0-45.0); Hemoglobin 13.2 g/dL (12.0-15.0); Lymphocytes % 30.4 % (15.3-44.8); MCH 27.4 pg (27.0-35.0); MCHC 34.1 g/dL (32.0-36.0); MCV 80.3 fL (80-100); MPV 9.2 fL (7.6-11.3); Monocytes % 14.3 % (3.3-12.3); Neutrophils % 53.5 % (41.7-73.7); Nucleated Red Blood Cells % 0.2 % (0-0); Platelets 221 thou/uL (152-406); RBC Red Blood Cell Count 4.81 M/uL (3.86-4.86); Red Cell Distribution Width 12.3 % (12.1-15.2)
[2023-06-24 15:35] LABS: Anion Gap 7.4 mEq/L (5.0-15.0); BUN Blood Urea Nitrogen 7 mg/dL (7-18); Bicarbonate 27 mEq/L (21-32); Glomerular Filtration Rate 123 ml/min (=/>90); Glucose Level 150 mg/dL (74-106); Magnesium 2.2 mg/dL (1.6-2.4); Potassium 3.4 mEq/L (3.5-5.1); Sodium Level 140 mEq/L (136-145); Troponin High Sensitivity < 3.0 pg/mL (<58.9)
[2023-06-24 15:36] LABS: Thyroid Stimulating Hormone < 0.005 uIU/mL (0.358-3.740)
--- NOTE | 2023-06-24 15:40 | RAD REPORT ---
EXAM DESCRIPTION: RAD - Chest Single View - 06/24/2023 3:08 pm CLINICAL HISTORY: Palpitations;Dyspnea Chest pain. COMPARISON: No comparisons FINDINGS: Portable technique limits examination quality. The lungs are grossly clear. The heart is normal in size. No displaced fractures. IMPRESSION: No acute intrathoracic process suspected.
--- NOTE | 2023-06-24 16:34 | RAD REPORT ---
EXAM DESCRIPTION: CT - Chest For Pe Angio - 06/24/2023 4:24 pm CLINICAL HISTORY: Chest pain. Dyspnea;Palpitations COMPARISON: No comparisons TECHNIQUE: CT angiogram of the pulmonary arteries was performed with MIP. All CT scans are performed using dose optimization technique as appropriate and may include automated exposure control or mA/KV adjustment according to patient size. FINDINGS: No evidence of pulmonary thromboembolism. No acute aortic finding demonstrated. Aberrant right subclavian artery. This is a normal variant. The lungs are clear. No significant pericardial or pleural fluid. No concerning bony finding. IMPRESSION: No evidence of pulmonary thromboembolism. No acute lung findings.
[2023-06-24 16:58] LABS: T3 Free 15.89 pg/mL (2.18-3.98); T4,Total > 24.0 ug/dL (4.8-13.9)
--- NOTE | 2023-06-24 17:55 | EDPHYS ---
Physician Documentation [facility] Name: Fiordaliza Regalado Age: 27 yrs Sex: Female : 1995 Arrival Date: 06/24/2023 Time: 14:27 Bed 5 Private MD: ED Physician Pepe Calvillo HPI: 06/23 17:16 This 27 yrs old Female presents to ER via Ambulatory with complaints of High heart rate.kb 17:16 Patient is a 27-year-old female with no medical history who presents for shortness of kb breath on exertion, tachycardia, palpitations, fatigue that started a week and a half ago. States prior to that she took a road trip to [place], started having symptoms about a day after she got back. Went to a doctor's appointment 2 days ago and was told her heart rate was 133 then went to a clinic today and told her heart rate was 135 and she did come to the ER for evaluation.. Historical: - Allergies: 14:41 No Known Allergies; ll1 - PMHx: 14:41 heart burn; ll1 - PSHx: 14:41 Tonsillectomy; ll1 - Immunization history:: Adult Immunizations up to date. - Social history:: Smoking status: Patient denies any tobacco usage or history of. ROS: 17:16 Constitutional: As per HPI kb Exam: 17:16 Constitutional: This is a well developed, well nourished patient who is awake, alert, kb and in no acute distress. Head/Face: Normocephalic, atraumatic. ENT: Moist Mucous membranes Respiratory: Respirations even and unlabored. No increased work of breathing. Talking in full sentences Abdomen/GI: Soft, non-tender. No distention Skin: Warm, dry with normal turgor. Normal color. MS/ Extremity: Pulses equal, no cyanosis. Neurovascular intact. Full, normal range of motion. Neuro: Awake and alert, GCS 15, oriented to person, place, time, and situation. Moves all extremities. Normal gait. 17:16 Constitutional: The patient appears anxious, 17:16 Cardiovascular: Rate: tachycardic, Rhythm: regular, Vital Signs: 14:44 BP 134 / 81; Pulse 138; Resp 16; Temp 98.3; Pulse Ox 100% ; Weight 57.61 kg; Height 5 ll1 ft. 5 in. ; Pain 0/10; 15:00 BP 121 / 81; Pulse 109; Resp 15; Pulse Ox 99% ; ko1 15:56 BP 123 / 76; Pulse 118; Resp 18; Pulse Ox 100% on R/A; ld1 17:07 BP 123 / 85; Pulse 100; Resp 18; Pulse Ox 97% on R/A; ld1 18:33 BP 121 / 86; Pulse 105; Resp 14; Temp 97; Pulse Ox 99% ; ko1 14:44 Body Mass Index 21.13 (57.61 kg, 165.1 cm) ll1 14:44 Pain Scale: Adult ll1 MDM: 14:29 Patient medically screened. kb 17:21 Differential diagnosis: arrythmia, dehydration, stress disorder, thyroid disorder, PE. kb Data reviewed: vital signs, nurses notes. Consideration of Admission/Observation Escalation of care including admission/observation considered. Pt will be transferred for endocrinology. Historians other than the Patient: Spouse/Significant Other: . Counseling: I had a detailed discussion with the patient and/or guardian regarding the historical points, exam findings, and any diagnostic results supporting the discharge/admit diagnosis, lab results, radiology results, the need to transfer to another facility, [facility] does not immediately have the required specialist. 17:53 Management of patient was discussed with the following: Dr Otero, deckhand oyster dredge at [facility], accepts pt for consult at 1745. Dr Liu, hospitalist at [facility] accepts pt for transfer at 1750. 06/23 14:45 Order name: Basic Metabolic Panel; Complete Time: 15:36 kb 06/23 14:45 Order name: CBC with Diff; Complete Time: 15:31 kb 06/23 14:45 Order name: D-Dimer; Complete Time: 15:31 kb 06/23 14:45 Order name: Magnesium; Complete Time: 15:36 kb 06/23 14:45 Order name: Troponin HS; Complete Time: 15:36 kb 06/23 14:45 Order name: TSH; Complete Time: 15:36 kb 06/23 14:46 Order name: Test, Urine; Complete Time: 15:18 kb 06/23 14:46 Order name: Urinalysis w/ reflexes; Complete Time: 15:18 kb 06/23 15:32 Order name: Test, Serum; Complete Time: 15:46 kb 06/23 16:30 Order name: T3 Free; Complete Time: 16:59 kb 06/23 16:31 Order name: T4 Free; Complete Time: 16:59 kb 06/23 16:31 Order name: T4,Total; Complete Time: 16:59 kb 06/23 14:45 Order name: XRAY Chest (1 view); Complete Time: 15:41 kb 06/23 15:25 Order name: CT Chest For PE Angio; Complete Time: 16:36 kb 06/23 14:45 Order name: Cardiac monitoring; Complete Time: 15:03 kb 06/23 14:45 Order name: EKG - Nurse/Tech; Complete Time: 15:03 kb 06/23 14:45 Order name: IV Saline Lock; Complete Time: 15:03 kb 06/23 14:45 Order name: Labs collected and sent; Complete Time: 15:03 kb 06/23 14:45 Order name: O2 Per Protocol; Complete Time: 15:03 kb 06/23 14:45 Order name: O2 Sat Monitoring; Complete Time: 15:03 kb Administered Medications: 15:03 Drug: NS 0.9% IV 1000 ml IV at 1000 ml once Route: IV; Rate: 1000 ml; Site: right ko1 antecubital; 18:36 Follow up: Response: No adverse reaction; IV Status: Completed infusion; IV Intake: ko1 1000ml 15:54 Drug: Metoprolol IVP 5 mg IVP once; Hold for SBP <100 or HR <60. Route: IVP; Site: ko1 right antecubital; 16:34 Follow up: Response: No adverse reaction ko1 15:54 Drug: Propranolol PO 40 mg PO once Route: PO; ko1 16:35 Follow up: Response: No adverse reaction ko1 Disposition Summary: 06/24/23 17:54 Transfer Ordered Notes: Transfer Location: [facility]-System kb Reason: Higher level of care kb Condition: Stable kb Problem: new kb Symptoms: are unchanged kb Accepting Physician: Dr Liu(06/24/23 19:26) jb4 Diagnosis - Thyroid Storm kb Forms: - Medication Reconciliation Form kb - SBAR form kb Signatures: Dispatcher [employer] EDJaky Mejia, MAIL DISTRIBUTION SCHEME EXAMINER-C MAIL DISTRIBUTION SCHEME EXAMINER-Fredo Skaggs, RN RN jb4 Myriam Cage RN RN ll1 Georgia Shaw RN RN ko1 Corrections: (The following items were deleted from the chart) 19: 17:54 Dr Tam jb4
--- NOTE | 2023-06-24 17:55 | ER ---
Nurse's Notes [facility] Name: Fiordaliza Regalado Age: 27 yrs Sex: Female : 1995 Arrival Date: 06/24/2023 Time: 14:27 Bed 5 Private MD: Diagnosis: Thyroid Storm Presentation: 06/23 14:42 Chief complaint: Patient states: HR 130's at doctors office yesterday. Feels nausea, ll1 shaky, SOB with exertion for 1 week. Coronavirus screen: Client denies travel out of the [place] in the last 14 days. Ebola Screen: Patient denies travel to an Ebola-affected area in the 21 days before illness onset. Initial Sepsis Screen: Does the patient meet any 2 criteria? No. Patient's initial sepsis screen is negative. Does the patient have a suspected source of infection? No. Patient's initial sepsis screen is negative. Risk Assessment: Do you want to hurt yourself or someone else? Patient reports no desire to harm self or others. 14:42 Method Of Arrival: Ambulatory [facility] 14:42 Acuity: BERNA 2 1 14:44 Chief complaint:. Onset of symptoms was June 17, 2023. 1 Triage Assessment: 14:42 General: Appears uncomfortable, Behavior is calm, cooperative, appropriate for age. ll1 General: Reports shaky. Cardiovascular: Reports fatigue, nausea, palpitations. Respiratory: Reports shortness of breath on exertion. Historical: - Allergies: 14:41 No Known Allergies; ll1 - PMHx: 14:41 heart burn; ll1 - PSHx: 14:41 Tonsillectomy; ll1 - Immunization history:: Adult Immunizations up to date. - Social history:: Smoking status: Patient denies any tobacco usage or history of. Screenin:04 [facility] ED Fall Risk Assessment (Adult) History of falling in the last 3 months, ko1 including since admission No falls in past 3 months (0 pts) Confusion or Disorientation No (0 pts) Intoxicated or Sedated No (0 pts) Impaired Gait No (0 pts) Mobility Assist Device Used No (0 pt) Altered Elimination No (0 pt) Score/Fall Risk Level 0 - 2 = Low Risk Oriented to surroundings, Maintained a safe environment, Educated pt \T\ family on fall prevention, incl call for assistance when getting out of bed, Assessed \T\ reinforced patient's understanding of fall precautions, Provided non-skid footwear, Hourly rounding (assess needs \T\ fall precautionary measures) done, Used ambulatory aids as needed (educated on \T\ assisted with), Used gait belt as appropriate. Abuse screen: Denies threats or abuse. Denies injuries from another. Nutritional screening: No deficits noted. Tuberculosis screening: No symptoms or risk factors identified. Assessment: 15:00 General: Appears in no apparent distress. Behavior is cooperative, appropriate for age, ko1 anxious. Pain: Denies pain. Neuro: No deficits noted. Cardiovascular: Rhythm is regular. Respiratory: No deficits noted. GI: No deficits noted. : No deficits noted. EENT: No deficits noted. Derm: No deficits noted. Musculoskeletal: No deficits noted. Vital Signs: 14:44 BP 134 / 81; Pulse 138; Resp 16; Temp 98.3; Pulse Ox 100% ; Weight 57.61 kg; Height 5 ll1 ft. 5 in. ; Pain 0/10; 15:00 BP 121 / 81; Pulse 109; Resp 15; Pulse Ox 99% ; ko1 15:56 BP 123 / 76; Pulse 118; Resp 18; Pulse Ox 100% on R/A; ld1 17:07 BP 123 / 85; Pulse 100; Resp 18; Pulse Ox 97% on R/A; ld1 18:33 BP 121 / 86; Pulse 105; Resp 14; Temp 97; Pulse Ox 99% ; ko1 14:44 Body Mass Index 21.13 (57.61 kg, 165.1 cm) ll1 14:44 Pain Scale: Adult ll1 ED Course: 14:28 Patient arrived in ED. mr 14:29 Jaky Velazco, SCRUB TECH-C [facility]. kb 14:29 Pepe Calvillo MD is Attending Physician. kb 14:40 Arm band placed on. ll1 14:42 Triage completed. ll1 14:52 Georgia Shaw, SHANNA is Primary Nurse. ko1 15:03 Test, Urine Sent. ko1 15:03 Urinalysis w/ reflexes Sent. ko1 15:03 TSH Sent. ko1 15:03 Basic Metabolic Panel Sent. ko1 15:03 CBC with Diff Sent. ko1 15:03 D-Dimer Sent. ko1 15:03 Magnesium Sent. ko1 15:03 Troponin HS Sent. ko1 15:04 Patient has correct armband on for positive identification. Placed in gown. Bed in low ko1 position. Call light in reach. Side rails up X 1. Client placed on continuous cardiac and pulse oximetry monitoring. NIBP monitoring applied. program research specialist on. Door closed. Noise minimized. Lights dimmed. Warm blanket given. Patient is placed in psych hold. Assisted to bathroom. 15:04 Initial lab(s) drawn, by me, sent to lab. Urine collected: clean catch specimen, clear, ko1 EKG done, by ED staff, reviewed by Pepe Calvillo MD. Inserted saline lock: 20 gauge in right antecubital area, using aseptic technique. Blood collected. 15:09 XRAY Chest (1 view) In Process Unspecified. EDMS 16:[address] hb 16:26 CT Chest For PE Angio In Process Unspecified. EDMS 16:30 Assisted to bathroom. ko1 17:09 attempted to initiated transfer to [facility], no one answered the phone. bd 17:19 initiated transfer to [facility]. bd 17:30 [facility] on transfer closure per Elif. bd 18:33 Provided Education on: na. Assisted to bathroom. ko1 18:33 No provider procedures requiring assistance completed. Patient transferred, IV remains ko1 in place. Administered Medications: 15:03 Drug: NS 0.9% IV 1000 ml IV at 1000 ml once Route: IV; Rate: 1000 ml; Site: right ko1 antecubital; 18:36 Follow up: Response: No adverse reaction; IV Status: Completed infusion; IV Intake: ko1 1000ml 15:54 Drug: Metoprolol IVP 5 mg IVP once; Hold for SBP <100 or HR <60. Route: IVP; Site: ko1 right antecubital; 16:34 Follow up: Response: No adverse reaction ko1 15:54 Drug: Propranolol PO 40 mg PO once Route: PO; ko1 16:35 Follow up: Response: No adverse reaction ko1 Medication: 15:00 VIS not applicable for this client. ko1 Intake: 18:36 IV: 1000ml; Total: 1000ml. ko1 Outcome: 16:30 Condition: stable ko1 16:30 Instructed on the need for transfer, 17:54 ER care complete, transfer ordered by . kb 19:26 Patient left the ED. jb4 Signatures: Dispatcher [employer] EDMS Jaky Velazco, SCRUB TECH-C SCRUB TECH-CkLeidy Rao Silva, Stephy, Reg Reg mr HuffRosalind, RN RN Fredo García, RN RN jb4 Myriam Cage RN RN ll1 Fiordaliza John RN RN ld1 Georgia Shaw RN RN ko1 Corrections: (The following items were deleted from the chart) 14:46 14:42 Chief complaint: Patient states: HR 130's at doctors office yesterday. Feels ll1 nausea, shaky, SOB with exertion ll1
[2023-06-24 20:25] VITALS: BP 121/86; TEMP 97; O2SAT 99
== END ==
LOC: ER 14:27
DX: E05.91 Thyrotoxicosis, unspecified with thyrotoxic crisis or storm (principal)
CPT/HCPCS: 85025; 81001; 80048; 36415; 83735; 84703; 81025; 85379; 84436; 84443; 84484; 84481; 84439; 71275; 71045; Q9967; J7030; 93005